=== PATIENT | female | born 1985 | race Caucasian/White ===

== ENCOUNTER 2019-03-23 18:25 | Emergency (ER) | payer SELFPAY ==
--- NOTE | 2019-03-23 18:30 | ED_ITS ---
Entered by Marcus Massey, acting as scribe for Wayne Littlejohn MD HPI - Overdose General: Chief Complaint: Psychiatric Symptoms Stated Complaint: ETOH Time Seen by Provider: 03/23/19 18:27 Source: patient and EMS Mode of arrival: EMS Limitations: altered mental status History of Present Illness: HPI Narrative: 33 yo female presents with possible overdose. Pt states that she snorted a line ativan. Pt states that she drank alcohol. Pt denies doing anything else. Pt states that she has some neck and back pain.Pt appears to be under the influence, she has slurred speech. Onset (ago): hour(s) Review of Systems Const: Denies: fever or chills Eyes: Denies: change in vision ENMT: Denies: throat pain or mouth pain Card: Denies: chest pain Resp: Denies: shortness of breath GI: Denies: abdominal pain, vomiting or diarrhea : Denies: difficulty urinating Musc: Denies: back pain or joint pain Skin/Breast: Denies: rash Neuro: Denies: headache Psych: Denies: depression Endo: Denies: excessive urination Ronny/Lymph: Denies: easy bruising All/Imm: Denies: hives PFSH ED PFSH: Statuses (acute, chronic, etc) shown below reflect problem list status as previously entered and may not be historically accurate Social History Smoking and tobacco status: never smoked Physical Exam Const: COMMON NORMALS: no apparent distress and healthy appearing HENMT: COMMON NORMALS: normocephalic and external nose normal HEAD & SCALP: normocephalic NOSE: external nose normal and no nasal discharge (nasal dis chage) Eye: COMMON NORMALS: PERRL PUPIL: Yes PERRL Neck/C-Spine: COMMON NORMALS: full ROM and no lymphadenopathy Chest: COMMONS NORMALS: inspection of chest normal Resp: COMMON NORMALS: normal respiratory effort and clear to auscultation bilaterally AUSCULTATION: clear to auscultation bilaterally Cardio: COMMON NORMALS: regular rate and regular rhythm RATE: regular rate RHYTHM: regular rhythm GI: COMMON NORMALS: soft to palpation PALPATION: Yes soft Extremity: COMMON NORMALS: normal to inspection, full ROM and normal capillary refill Psych: COMMON NORMALS: cooperative OTHER: Patient is clearly intoxicated. Skin: COMMON NORMALS: no rashes or lesions noted GENERAL SKIN EXAM: no rashes or lesions noted Course Vital Signs: Vital signs: Vital Signs Temperature 98.9 F 03/23/19 18:34 Pulse Rate 89 03/23/19 21:52 Respiratory Rate 16 03/23/19 21:52 Blood Pressure 97/60 03/23/19 21:52 Pulse Oximetry 96 03/23/19 21:52 MDM - Overdose MDM Narrative: Medical decision making narrative: Patient presents with alcohol intoxication. She has no signs of overdose. Patient will be monitored here until she is able to ambulate and will then be discharged with mother. Patient has been stable while here and is protecting her own airway. She has a history of alcoholism. Lab Data: Labs: Lab Results 03/23/19 03/23/19 Range/Units 18:50 18:50 WBC 6.6 (4.0-10.0) 10^3/ uL RBC 4.42 (4.1-5.3) 10^6/u L Hgb 13.2 (11.5-15.3) g/dL Hct 38.4 (37.0-47.0) % MCV 86.9 (81-99) fL MCH 29.9 (28.0-34.0) pg MCHC 34.4 (30.0-36.0) g/dL RDW 11.3 L (12.1-15.1) % Plt Count 308 (130-400) 10^3/c mm MPV 9.0 (7.4-10.4) fL Neut % (Auto) 57.1 % Lymph % (Auto) 38.1 % [place] % (Auto) 2.9 % Eos % (Auto) 0.8 % Baso % (Auto) 0.5 % Neut # (Auto) 3.8 (1.8-7.7) 10^3/u L Lymph # (Auto) 2.5 (0.8-4.8) 10^3/u L [place] # (Auto) 0.2 (0.2-0.9) 10^3/u L Eos # (Auto) 0.1 (0.0-0.8) 10^3/u L Baso # (Auto) 0.0 (0.0-0.1) 10^3/u L Nucleated RBC % (a uto) 0 % Nucleated RBCs # 0.0 /100WBC Sodium 143 (136-145) mmol/L Potassium 4.2 (3.5-5.1) mmol/L Chloride 103 (98-107) mmol/L Carbon Dioxide 29 (22-29) mmol/L Anion Gap 15.2 (5-19) BUN 9 (6-20) mg/dL Creatinine 0.8 (0.5-0.9) mg/dL GFR Calculation 81.6 L (90-130) mL/min Glucose 114 H (74-109) mg/dL Calcium 9.5 (8.5-10.5) mg/dL Total Bilirubin 0.2 (0.15-1.2) mg/dL AST 20 (0-32) U/L ALT 16 (0-33) U/L Alkaline Phosphata se 68 (35-105) IU/L Total Protein 8.4 (6.6-8.7) g/dL Albumin 5.0 (3.5-5.2) g/dL Globulin 3.4 (1.3-4.6) g/dL Salicylates < 0.3 L (3-10) mg/dL Acetaminophen < 5.0 L (10-30) ug/mL Ethyl Alcohol 370 H* (0-10) mg/dL EKG Data^: EKG 1: Attestation: I personally reviewed and interpreted this EKG as follows: EKG interpretation date: 03/23/19 EKG interpretation time: 19:29 Interpretation: nsr hr [address] or t wave abnormalities Discharge Plan Discharge Patient Disposition: Home, Self-Care Clinical Impression: Alcohol intoxication Qualifiers: Complication of substance-induced condition: uncomplicated Qualified Code(s): F10.920 - Alcohol use, unspecified with intoxication, uncomplicated Condition: Stable Discharge Orders: Discharge Order (Routine); Ordered 03/23/19 Ordered By: Wayne Littlejohn Discharge Diet: Advance as tolerated Discharge Activity: Increase activity as tolerated Patient Instructions: Alcohol Intoxication Discharge Date/Time: 03/23/19 21:53 Coding Level of Care Code ED Progress Clerk for Chg Fwd Exam Problem Focused The documentation recorded by the Bryson akers Kialy, accurately reflects the service I personally performed and the decisions made by Eron horowitz Korby, MD Mar 23, 2019 18:25
--- NOTE | 2019-03-23 18:32 | ECG_ITS ---
Measurements Intervals [place] Rate: 87 P: 39 IA: 164 QRS: 20 QRSD: 132 T: 58 QT: 391 QTc: 473 SINUS RHYTHM INTRAVENTRICULAR CONDUCTION DELAY [130+ ms QRS DURATION] Compared to ECG 08/28/2018 20:24:36 Intraventricular conduction delay now present Electronically Signed On 03-24-2019 18:52:01 [employer]PERVISOR [employer] by Moshe Gómez M.D. [email or web address]
[2019-03-23 18:34] VITALS: BP 98/67; PULSE 100; RESP 18; TEMP 37.2; O2SAT 98; BMI 25.1
[2019-03-23 18:42] VITALS: O2SAT 97
[2019-03-23] MEDS: sodium chloride 0.9% 1,000 ML 999 ML IV ×2 (18:51→20:20)
[2019-03-23 19:01] LABS: Basophils % 0.5 %; Eosinophils # 0.1 10^3/uL (0.0-0.8); Eosinophils % 0.8 %; Hematocrit 38.4 % (37.0-47.0); Hemoglobin 13.2 g/dL (11.5-15.3); Lymphocytes # 2.5 10^3/uL (0.8-4.8); Lymphocytes % 38.1 %; Mean Corpuscular HGB Conc 34.4 g/dL (30.0-36.0); Mean Corpuscular Hemoglobin 29.9 pg (28.0-34.0); Mean Corpuscular Volume 86.9 fL (81-99); Monocytes # 0.2 10^3/uL (0.2-0.9); Monocytes % 2.9 %; Neutrophils # 3.8 10^3/uL (1.8-7.7); Neutrophils % 57.1 %; Nucleated Red Blood Cells % 0 %; Platelet Count 308 10^3/cmm (130-400); Red Blood Count 4.42 10^6/uL (4.1-5.3); Red Cell Distribution Width 11.3 % (12.1-15.1); White Blood Count 6.6 10^3/uL (4.0-10.0)
[2019-03-23 19:17] LABS: Alanine Aminotransferase 16 U/L (0-33); Alkaline Phosphatase 68 IU/L (35-105); Anion Gap 15.2 (5-19); Aspartate Amino Transferase 20 U/L (0-32); Blood Urea Nitrogen 9 mg/dL (6-20); Calcium 9.5 mg/dL (8.5-10.5); Carbon Dioxide 29 mmol/L (22-29); Chloride 103 mmol/L (98-107); Globulin 3.4 g/dL (1.3-4.6); Glomerular Filtration Rate 81.6 mL/min (90-130); Glucose 114 mg/dL (74-109); Potassium 4.2 mmol/L (3.5-5.1); Sodium 143 mmol/L (136-145); Total Bilirubin 0.2 mg/dL (0.15-1.2); Total Protein 8.4 g/dL (6.6-8.7)
[2019-03-23 19:18] LABS: Acetaminophen < 5.0 ug/mL (10-30); Salicylate < 0.3 mg/dL (3-10)
[2019-03-23 19:20] LABS: Alcohol Level 370 mg/dL (0-10)
[2019-03-23 19:22] LABS: Slide Review Slide Review Perform
--- NOTE | 2019-03-23 21:04 | XRR_ITS ---
PROCEDURE INFORMATION: Exam: XR Chest, 1 View Exam date and time: 03/23/2019 9:04 PM Age: 33 years old Clinical indication: Shortness of breath; Additional info: SOB TECHNIQUE: Imaging protocol: XR of the chest Views: 1 view. COMPARISON: CR Chest 1 [place] [id number] 12/06/2017 4:04 AM FINDINGS: Lungs: Unremarkable. No consolidation. Pleural space: Unremarkable. No pleural effusion. No pneumothorax. Heart/Mediastinum: Unremarkable. No cardiomegaly. Bones/joints: Unremarkable. XR/XR chest 1V portable [id number] IMPRESSION: No acute findings.
[2019-03-23 21:52] VITALS: BP 97/60; PULSE 89; RESP 16; O2SAT 96
== END 2019-03-23 21:53 | disposition home or self-care (01) ==
PROVIDERS: Emergency Provider Emergency Medicine
DX: F10.120 Alcohol abuse with intoxication, uncomplicated (principal); Y90.8 Blood alcohol level of 240 mg/100 ml or more
CPT/HCPCS: 71045; 80053; 80307; 85025; 93005; 96360; 96361; 99283; J7030

== ENCOUNTER → 2023-08-22 14:11 | Outpatient (BNVA) | payer OTHER, SELFPAY | PROVIDERS: Visit Provider Nurse Practitioner | DX: F41.1 Generalized anxiety disorder (principal) | CPT/HCPCS: 80061; 83036 ==